=== PATIENT | male | born 1955 | race Caucasian/White ===

== ENCOUNTER 2023-11-26 13:16 | Emergency (ER) | payer OTHER ==
--- NOTE | 2023-11-26 13:41 | ED Physician Documentation ---
PD HPI ABD PAIN - Stated complaint Stated Complaint: LT SIDE PX,N/V,STEELE - Chief complaint Chief Complaint: Abd Pain - History obtained from History obtained from: Patient - Additional information Additional information: Patient is a 68-year-old male presenting for evaluation of left flank to left lower quadrant pain starting this morning. Patient describes it as sharp. Nothing makes it better or worse. He does have associated nausea or vomiting. He went to the walk-in clinic Where he was given 400 mg of ibuprofen and p.o. Zofran. Ibuprofen did not help with the pain but the Zofran has helped with the nausea. Denies hematuria or dysuria. No fevers. Denies known history of kidney stones. No chest pain or shortness of air. No prior abdominal surgeries. Review of Systems Constitutional: denies: Fever Cardiac: denies: Chest pain / pressure Respiratory: denies: Dyspnea GI: reports: Abdominal Pain, Nausea, Vomiting. denies: Diarrhea : denies: Dysuria PD PAST MEDICAL HISTORY - Past Medical History Past Medical History: Yes GI: GERD - Past Surgical History Past Surgical History: Yes - Present Medications Home Medications: Ambulatory Orders Medication Instructions Recorded Confirmed Omeprazole 40 mg PO DAILY 11/26/23 11/26/23 Ondansetron Odt [Zofran] 4 mg TL Q6H PRN #10 tablet 11/26/23 Oxycodone HCl/Acetaminophen 1 each PO Q6H PRN #14 tablet 11/26/23 [Percocet 5-325 mg Tablet] - Allergies Allergies/Adverse Reactions: Allergies Allergy/AdvReac Type Severity Reaction Status Date / Time levofloxacin [From Levaquin] AdvReac Unknown Verified 11/26/23 13:29 - Social History Does the pt smoke?: No Smoking Status: Never smoker PD ED PE NORMAL - General General: Alert and oriented X 3, Well developed/nourished, Other (Sitting on the edge of the bed, appears uncomfortable) - HEENT HEENT: Atraumatic, Moist mucous membranes - Neck Neck: Supple, no meningeal sign - Cardiac Cardiac: RRR, Strong equal pulses - Respiratory Respiratory: No respiratory distress, Clear bilaterally - Abdomen Abdomen: Normal bowel sounds, Soft, Non tender, Non distended - Back Back: No CVA TTP - Derm Derm: Warm and dry - Neuro Neuro: Normal speech Results - Vitals Vitals: Vital Signs - 24 hr 11/26/23 11/26/23 11/26/23 13:23 14:19 15:49 Temperature 36.6 C Heart Rate 55 L 58 L 58 L Respiratory 16 18 18 Rate Blood Pressure 196/94 H 159/93 H 152/87 H O2 Saturation 100 93 94 11/26/23 16:01 Temperature Heart Rate 57 L Respiratory 18 Rate Blood Pressure 152/87 H O2 Saturation 94 Oxygen O2 Source Room air - Labs Labs: Laboratory Tests 11/26/23 11/26/23 11/26/23 13:47 13:47 13:51 WBC 11.6 H RBC 5.87 Hgb 17.9 Hct 50.6 MCV 86.2 MCH 30.5 MCHC 35.4 RDW 12.8 Plt Count 167 MPV 12.3 H Neut # (Auto) 10.5 H Lymph # (Auto) 0.7 L [place]ferro # (Auto) 0.4 Eos # (Auto) 0.0 Baso # (Auto) 0.1 Absolute Nucleated RBC 0.00 Nucleated RBC % 0.0 Sodium 137 Potassium 4.0 Chloride 102 Carbon Dioxide 25 Anion Gap 10.0 BUN 24 H Creatinine 1.5 H Estimated GFR (MDRD) 47 L Glucose 153 H Calcium 10.2 Total Bilirubin 1.4 H AST 25 ALT 25 Alkaline Phosphatase 69 Total Protein 7.7 Albumin 4.9 Globulin 2.8 Albumin/Globulin Ratio 1.8 Lipase 34 Urine Color YELLOW Urine Clarity CLEAR Urine pH 8.5 H Ur Specific [place] 1.015 Urine Protein 30 H Urine Glucose (UA) NEGATIVE Urine Ketones 15 H Urine Occult Blood NEGATIVE Urine Nitrite NEGATIVE Urine Bilirubin NEGATIVE Urine Urobilinogen 0.2 (NORMAL) Ur Leukocyte Esterase NEGATIVE Urine RBC None Seen Urine WBC 0-3 Ur Squamous Epith Cells NONE SEEN Urine Bacteria None Seen Ur Microscopic Review INDICATED Urine Culture Comments NOT INDICATED PD Medical Decision Making - ED course Complexity details: reviewed results, d/w patient ED course: Patient is a 68-year-old male presenting for evaluation of left flank pain rating to the left lower quadrant. With associated nausea and vomiting. Vital signs are stable. No reproducible tenderness. CBC, chemistry, urinalysis were obtained and reviewed. Creatinine is 1.5. No prior labs. Patient states he does have a history of some kidney disease but is unable to pull up his most recent labs. Urine is negative for infection. CT of the abdomen and pelvis was reviewed demonstrating findings of mild hydronephrosis to the left kidney with findings suggestive of possibly recent passed kidney stone. Patient does feel much better after 2 doses of IV Dilaudid, Toradol, Zofran. He reports he no longer has any pain. Discussed CT findings which suggest recently passed stone. The patient is planning to return to [place] where he and his live on Wednesday. Patient and are advised that patient needs follow-up with PCP. He is also aware of strict return precautions. Departure - Departure Disposition: 01 Home, Self Care Clinical Impression: Left flank pain, Elevated serum creatinine Condition: Stable Instructions: ED Stone Renal Passed Prescriptions: Oxycodone HCl/Acetaminophen [Percocet 5-325 mg Tablet] 1 each PO Q6H PRN #14 tablet PRN Reason: pain Ondansetron Odt [Zofran] 4 mg TL Q6H PRN #10 tablet PRN Reason: Nausea / Vomiting Comments: Your CT scan shows findings that you have likely recently passed a kidney stone. Your urine test does not show an infection. Your creatinine which is a marker that looks at your kidneys is slightly elevated (1.5) today but you have also had kidney issues in the past. I am not able to access any old records to compare today's value but I would recommend you have close follow-up with your primary care provider when you return to [place] next week to recheck your kidneys. I have sent a small amount of pain and nausea medication to the [facility] in [place] just in case you do have any residual pain or symptoms. Return to the ER with any worsening symptoms such as fever. CT RESULTS. IMPRESSION: There is minimal prominence of the left ureter with associated periureteral stranding, moderate left hydronephrosis and dilatation of the left renal pelvis with associated left perinephric stranding. No obstructing stone or mass lesion identified. Findings may represent sequela of recently passed stone. Recommend clinical and laboratory correlation to exclude possible concurrent infectious uropathy. Cholelithiasis without CT evidence for acute cholecystitis. Small hiatal hernia. Other chronic findings as above. Forms: PCP List Discharge Date/Time: 11/26/23 16:10
[2023-11-26 13:54] LABS: BASOPHILS # (AUTO) 0.1 10^3/uL (0.0-0.1); BASOPHILS % (AUTO) 0.4 %; EOSINOPHILS % (AUTO) 0.1 %; HCT - HEMATOCRIT 50.6 % (42.0-52.0); HGB - HEMOGLOBIN 17.9 g/dL (14.0-18.0); LYMPHOCYTES # (AUTO) 0.7 10^3/uL (1.5-3.5); LYMPHOCYTES % (AUTO) 5.8 %; MEAN CORPUSCULAR HEMOGLOBIN 30.5 pg (27.0-31.0); MEAN CORPUSCULAR HGB CONC 35.4 g/dL (32.0-36.0); MEAN CORPUSCULAR VOLUME 86.2 fL (80.0-94.0); MEAN PLATELET VOLUME 12.3 fL (7.4-11.4); MONOCYTES # (AUTO) 0.4 10^3/uL (0.0-1.0); MONOCYTES % (AUTO) 3.1 %; NEUTROPHILS # (AUTO) 10.5 10^3/uL (1.5-6.6); NEUTROPHILS % (AUTO) 90.2 %; PLT - PLATELET COUNT 167 10^3/uL (130-450); RED BLOOD COUNT 5.87 10^6/uL (4.70-6.10); RED CELL DISTRIBUTION WIDTH 12.8 % (12.0-15.0); WHITE BLOOD COUNT 11.6 x10^3/uL (4.8-10.8)
[2023-11-26] MEDS: HYDROmorphone 1 MG/ML CARPUJECT IVP STA ×2 (13:56→15:12)
[2023-11-26 14:04] LABS: BILIRUBIN,URINE NEGATIVE (NEGATIVE); CLARITY,URINE CLEAR (CLEAR); GLUCOSE, URINE (UA) NEGATIVE (NEGATIVE); KETONES,URINE (UA) 15 mg/dL (NEGATIVE); LEUKOCYTE ESTERASE, URINE NEGATIVE (NEGATIVE); NITRITE,URINE NEGATIVE (NEGATIVE); OCCULT BLOOD,URINE NEGATIVE (NEGATIVE); PH,URINE 8.5 PH (5.0-7.5); PROTEIN,URINE 30 mg/dL (NEGATIVE); UROBILINOGEN,URINE 0.2 (NORMAL) E.U./dL (NORMAL)
[2023-11-26 14:05] LABS: ALBUMIN 4.9 g/dL (3.2-5.5); ALBUMIN/GLOBULIN RATIO 1.8 (1.0-2.2); BILIRUBIN,TOTAL 1.4 mg/dL (0.2-1.0); CALCIUM 10.2 mg/dL (8.5-10.3); CREATININE 1.5 mg/dL (0.6-1.3); TOTAL PROTEIN 7.7 g/dL (6.4-8.9)
[2023-11-26 14:10] LABS: BACTERIA,URINE None Seen /HPF (None Seen); RBC,URINE None Seen /HPF (0-5); SQUAMOUS EPITHELIAL CELL,UR NONE SEEN (<= Few); WBC,URINE 0-3 /HPF (0-3)
[2023-11-26] MEDS: KETOROLAC 30 MG/ML VIAL IVP STA (15:11)
[2023-11-26] MEDS: ONDANSETRON 4 MG/2 ML VIAL IVP STA (15:12)
--- NOTE | 2023-11-26 15:24 | CT Report ---
PROCEDURE: Abdomen/Pelvis WO INDICATIONS: L flank to LLQ pain TECHNIQUE: A CT scan of the abdomen and pelvis was performed without the use of intravenous contrast. Images we re recorded and evaluated at appropriate window settings. Reformats: coronal and sagittal. For radiat ion dose reduction, the following was used: automated exposure control, adjustment of mA and/or kV ac cording to patient size. COMPARISON: None. FINDINGS: Image quality: Diagnostic. Lower chest: Bibasilar atelectasis. Small hiatal hernia. Liver: No contour-deforming mass. Gallbladder and biliary tree: Cholelithiasis without wall thickening. No biliary dilation. Spleen: No splenomegaly. Pancreas: No pancreatic ductal dilation. Adrenals: No right-sided adrenal nodule. There is a 1.2 cm low-attenuation left adrenal nodule compat ible with an adrenal adenoma. Kidneys and ureters: No right-sided hydronephrosis. There is mild-moderate left hydronephrosis with a ssociated left perinephric stranding and prominence of the left renal pelvis. There is minimal promin ence of the left ureter and mild periureteral stranding. No ureteral or urinary bladder stone identif ied. Focal vascular calcification noted in the left anterior renal hilum. No renal cystic lesion whic h requires follow up. No solid mass. Stomach, bowel and peritoneum: No bowel distension. No pathologic free fluid. Normal appendix. Lymph nodes: No central or retroperitoneal adenopathy. Vessels: No infrarenal aortic aneurysm. Atherosclerotic vascular calcifications. PELVIS Reproductive organs: Unremarkable. Bladder: No wall thickness, accounting for underdistention. Pelvic lymph nodes: No pelvic adenopathy by size criteria. Bones: No aggressive osseous abnormality. No acute compression fracture. Mild lumbar spondylitic cardoza ges. Moderate degenerative changes at L4-5. Other: Small fat-containing umbilical and left inguinal hernias. No acute inflammatory changes. IMPRESSION: There is minimal prominence of the left ureter with associated periureteral stranding, moderate left hydronephrosis and dilatation of the left renal pelvis with associated left perinephric stranding. No obstructing stone or mass lesion identified. Findings may represent sequela of recently passed stone . Recommend clinical and laboratory correlation to exclude possible concurrent infectious uropathy. Cholelithiasis without CT evidence for acute cholecystitis. Small hiatal hernia. Other chronic findings as above. Reviewed by: Miguel Olmedo MD on 11/26/2023 3:23 PM PDT Approved by: Miguel Olmedo MD on 11/26/2023 3:23 PM PDT Station ID: [id number]
[2023-11-26 15:55] VITALS: BP 152/87; O2SAT 94
== END 2023-11-26 16:10 | disposition home or self-care (01) ==
LOC: ED 13:16
DX: R10.32 Left lower quadrant pain (principal); R79.89 Other specified abnormal findings of blood chemistry
CPT/HCPCS: 36415; 74176; 80053; 81001; 83690; 85025; 96374; 96375; 96376; 99283; 99284; J1170; 81003; 87086